=== PATIENT | male | born 1940 | race Caucasian/White ===

== ENCOUNTER 2023-06-16 11:55 | Emergency (ER) | payer SELFPAY ==
[~2023-06-16] VITALS: Ht 170.2 cm; Wt 65.0 kg
[2023-06-16 12:03] VITALS: BP 115/57; PULSE 73; RESP 18; TEMP 98.1; O2SAT 100
== END 2023-06-16 15:06 | disposition home or self-care (01) ==
LOC: ER 11:55
DX: Z43.3 Encounter for attention to colostomy (principal); I10 Essential (primary) hypertension; Z98.890 Other specified postprocedural states
CPT/HCPCS: 99281